=== PATIENT | female | born 1935 | race Caucasian/White ===

== ENCOUNTER 2019-10-11 11:01 | Outpatient (CLI) | payer MEDICARE, SELFPAY ==
[2019-10-11 13:50] LABS: Anion Gap 17.5 (5-19); Blood Urea Nitrogen 53 mg/dL (8-23); Calcium 10.2 mg/Dl (8.8-10.2); Carbon Dioxide 22 mmol/L (22-29); Chloride 104 mmol/L (98-107); Glucose 100 mg/dL (74-106); Potassium 4.5 mmol/L (3.5-5.1); Sodium 139 mmol/L (136-145)
== END 2019-10-11 11:02 | disposition home or self-care (01) ==
LOC: LAB 11:08
PROVIDERS: Family Provider Internal Medicine; PCP Internal Medicine; Visit Provider Internal Medicine
DX: N18.4 Chronic kidney disease, stage 4 (severe) (principal)
CPT/HCPCS: 80048

== ENCOUNTER 2019-11-26 22:24 | Observation (INO) | payer MEDICARE, SELFPAY ==
[2019-11-26 22:30] VITALS: BP 164/85; PULSE 64; RESP 18; TEMP 36.5; O2SAT 97; BMI 31.9
--- NOTE | 2019-11-26 22:47 | ED_ITS ---
Entered by Opal Christiansen, acting as scribe for Haydee Hernandez Mariama Nov 26, 2019 22:24 HPI - Chest Pain General: Chief Complaint: Chest Pain Stated Complaint: cp Time Seen by Provider: 11/26/19 22:46 Source: patient Mode of arrival: ambulatory History of Present Illness: HPI narrative: 83 y/o female presents to the ED with complaint of chest pain. Pt states the pain has been intermittent since 1500 today. She tried some sublingual NTG throughout the day which seemed to relieve the discomfort temporarily. Her pain has been constant for the past hour or so and is achy in nature. She has hx of previous MS and stent placement about 3 years ago. She reports having worn a holter monitor for a span of three months, since her last MS. MD complaint: chest pain Pertinent past history: prior MS Onset (ago): hour(s) Timing of current episode: constant Prior episodes: Yes Pain location: substernal Pain radiation: back Severity: similar to previous episodes Quality: aching Relieving factors: nitroglycerin Associated symptoms: Deny abdominal pain, diaphoresis, dyspnea, fever(s), nausea or vomiting Treatment prior to arrival: nitroglycerin Review of Systems General: Reports: other (negative unless marked) Const: Denies: fever, chills, body aches, fatigue, malaise or diaphoresis Eyes: Denies: change in vision or blurry vision ENMT: Denies: throat pain, painful swallowing, hoarseness, ear pain, ear discharge, Change in hearing or nasal discharge Resp: Denies: shortness of breath, productive cough, non-productive cough, wheezing, coughing up blood or chest congestion GI: Denies: abdominal pain, nausea, vomiting, vomiting blood, coffee grounds in vomit, diarrhea, constipation, cramping, blood in stool or black tarry stool : Denies: flank pain, painful urination, urinary frequency, urinary urgency, decreased urine ouput, urinary incontinence or blood in urine Musc: Denies: neck pain, extremity pain, extremity swelling, joint pain, joint swelling, joint warmth or joint stiffness Skin/Breast: Denies: rash, skin tenderness or yellow skin Neuro: Denies: headache, numbness in extremities, weakness in extremities, changes in sensation, lack of coordination, difficulty walking, dizziness, vertigo or confusion Endo: Denies: excessive thirst, tired all the time, cold intolerance, excessive sweating, flushing or hot flashes Abhishek/Lymph: Denies: easy bruising, easy bleeding, petechiae or enlarged lymph nodes All/Imm: Denies: hives, throat swelling, tongue swelling, facial swelling or acute wheezing PFSH ED PFSH: Medical History (Updated 11/27/19 @ 00:14 by Haydee Hernandez) Cataract Surgical History (Updated 11/07/19 @ 15:25 by Franco Aguilar MD) H/O heart artery stent History of hysterectomy S/P cholecystectomy Family History (Updated 11/07/19 @ 14:51 by JOSE Holland) Brother Cancer Other Diabetes Heart disease Social History (Updated 11/07/19 @ 14:52 by JOSE Holland) Smoking and tobacco status: never smoked Alcohol intake: never History of recent travel: No Physical Exam Const: COMMON NORMALS: no apparent distress, oriented x3, no limitations, healthy appearing and well nourished EXAM LIMITATIONS: no altered mental status GENERAL APPEARANCE: cooperative, well kempt and well developed ORIENTATION/CONSCIOUSNESS: Yes awake HENMT: COMMON NORMALS: normocephalic, head/scalp atraumatic, hearing grossly normal bilaterally, external ears normal, EAC's normal, external nose normal and moist oral mucous membranes HEAD & SCALP: normal to inspection, normocephalic and atraumatic FACE & SINUS: normal facial exam and face symmetric NOSE: external nose normal and nares normal EXTERNAL EAR: Yes external ears normal EXTERNAL AUDITORY CANAL: EAC's normal MOUTH: oral and palatal mucosa normal and tongue normal Eye: COMMON NORMALS: PERRL, EOMs intact bilaterally, conjunctivae normal and no scleral icterus GENERAL EYE: normal appearance of both eyes and normal light reflex CONJUNCTIVA: Yes conjunctivae normal SCLERA: sclerae normal CORNEA: Yes corneas normal PUPIL: Yes PERRL DIRECT OPHTHALMOSCOPY: Yes normal light reflex Neck/C-Spine: COMMON NORMALS: full ROM, no lymphadenopathy, supple and no meningeal signs GENERAL: Yes normal visual inspection and Yes trachea midline CERVICAL SPINE: Yes cervical ROM normal Resp: COMMON NORMALS: normal respiratory effort, no retractions, no use of accessory muscles and clear to auscultation bilaterally EFFORT & INSPECTION: Yes able to speak in complete sentences AUSCULTATION: clear to auscultation bilaterally Cardio: COMMON NORMALS: no rub JUGULAR VENOUS DISTENTION: no JVD GI: COMMON NORMALS: soft to palpation, non-tender, no hepatosplenomegaly and no masses INSPECTION: Yes normal to inspection PALPATION: Yes soft and Yes no hepatosplenomegaly : COMMON NORMALS: Yes no CVA tenderness BLADDER/KIDNEY EXAM: Yes no CVA tenderness Back/Pelvis: COMMON NORMALS: no CVA tenderness, thoracic and lumbar spine normal to inspection, no thoracic nor lumbar tenderness and thoraco-lumbar ROM normal Extremity: COMMON NORMALS: normal to inspection, full ROM, normal capillary refill, no joint enlargement, no clubbing, cyanosis or edema and no calf tenderness Neuro: COMMON NORMALS: oriented x3, CN's II-XII intact bilaterally, moves all extremities, no focal motor deficits and no sensory deficits noted MENINGEAL SIGNS: Yes no meningeal signs Psych: COMMON NORMALS: mental status grossly normal, thought process normal, cooperative, affect normal, speech normal and activity/motor behavior normal APPEARANCE: Yes well kempt SPEECH: Yes normal speech THOUGHT PROCESS: normal thought process Skin: COMMON NORMALS: no rashes or lesions noted, skin turgor normal, no jaundice, no petechiae and no mottling GENERAL SKIN EXAM: no rashes or lesions noted and turgor normal Course Vital Signs: Vital signs: Vital Signs Temperature 97.7 F 11/26/19 22:30 Pulse Rate 55 L 11/27/19 03:00 Respiratory Rate 18 11/27/19 03:00 Blood Pressure 154/68 11/27/19 03:00 Pulse Oximetry 97 11/27/19 03:00 MDM - Chest Pain MDM Narrative: Medical decision making narrative: The patient appears to have acute on chronic renal insufficiency. There is no evidence clinically of congestive heart failure. Believe she needs to be admitted for IV hydration and cardiac rule out. Per review of her previous cath report she has multiple lesions that are present that have not been addressed. The case is reviewed in full with Dr. Escamilla she is agreeable to admission. Lab Data: Attestation: I reviewed the patient's lab results. Labs: Lab Results 11/26/19 11/26/19 11/26/19 Range/Units 23:16 23:16 23:16 WBC 12.4 H (4.0-10.0) 10^3/ uL RBC 4.37 (4.1-5.3) 10^6/u L Hgb 12.2 (11.5-15.3) g/dL Hct 39.9 (37.0-47.0) % MCV 91.3 (81-99) fL MCH 27.9 L (28.0-34.0) pg MCHC 30.6 (30.0-36.0) g/dL RDW 14.5 (12.1-15.1) % Plt Count 152 (130-400) 10^3/c mm MPV 11.2 H (7.4-10.4) fL Neut % (Auto) 81.9 % Lymph % (Auto) 11.5 % [place] % (Auto) 4.8 % Eos % (Auto) 0.1 % Baso % (Auto) 0.2 % Neut # (Auto) 10.2 H (1.8-7.7) 10^3/u L Lymph # (Auto) 1.4 (0.8-4.8) 10^3/u L [place] # (Auto) 0.6 (0.2-0.9) 10^3/u L Eos # (Auto) 0.0 (0.0-0.8) 10^3/u L Baso # (Auto) 0.0 (0.0-0.1) 10^3/u L Nucleated RBC % (a uto) 0 % Nucleated RBCs # 0.0 /100WBC PT 17.90 H (10.5-13.3) SECO NDS INR 1.47 H (0.8-1.2) Sodium 133 L (136-145) mmol/L Potassium 5.8 H (3.5-5.1) mmol/L Chloride 99 (98-107) mmol/L Carbon Dioxide 20 L (22-29) mmol/L Anion Gap 19.8 H (5-19) BUN 86 H* D (8-23) mg/dL Creatinine 2.6 H (0.5-0.9) mg/dL Glucose 119 H (65-115) mg/dL Calcium 10.0 (8.5-10.5) mg/dL Magnesium 2.6 H (1.7-2.3) mg/dL Total Bilirubin 0.3 (0.15-1.2) mg/dL AST 25 (0-32) U/L ALT 44 H (0-33) U/L Alkaline Phosphata se 35 (35-105) IU/L Troponin T Baselin e (0-10) ng/mL NT-Pro-B Natriuret Pep 1261 H (0-450) pg/mL Total Protein 7.2 (6.6-8.7) g/dL Albumin 4.0 (3.5-5.2) g/dL Globulin 3.2 (1.3-4.6) g/dL Lipase 67 H (13-60) U/L 11/26/19 Range/Units 23:16 WBC (4.0-10.0) 10^3/ uL RBC (4.1-5.3) 10^6/u L Hgb (11.5-15.3) g/dL Hct (37.0-47.0) % MCV (81-99) fL MCH (28.0-34.0) pg MCHC (30.0-36.0) g/dL RDW (12.1-15.1) % Plt Count (130-400) 10^3/c mm MPV (7.4-10.4) fL Neut % (Auto) % Lymph % (Auto) % [place] % (Auto) % Eos % (Auto) % Baso % (Auto) % Neut # (Auto) (1.8-7.7) 10^3/u L Lymph # (Auto) (0.8-4.8) 10^3/u L [place] # (Auto) (0.2-0.9) 10^3/u L Eos # (Auto) (0.0-0.8) 10^3/u L Baso # (Auto) (0.0-0.1) 10^3/u L Nucleated RBC % (a uto) % Nucleated RBCs # /100WBC PT (10.5-13.3) SECO NDS INR (0.8-1.2) Sodium (136-145) mmol/L Potassium (3.5-5.1) mmol/L Chloride (98-107) mmol/L Carbon Dioxide (22-29) mmol/L Anion Gap (5-19) BUN (8-23) mg/dL Creatinine (0.5-0.9) mg/dL Glucose (65-115) mg/dL Calcium (8.5-10.5) mg/dL Magnesium (1.7-2.3) mg/dL Total Bilirubin (0.15-1.2) mg/dL AST (0-32) U/L ALT (0-33) U/L Alkaline Phosphata se (35-105) IU/L Troponin T Baselin e 25 H (0-10) ng/mL NT-Pro-B Natriuret Pep (0-450) pg/mL Total Protein (6.6-8.7) g/dL Albumin (3.5-5.2) g/dL Globulin (1.3-4.6) g/dL Lipase (13-60) U/L Imaging Data^: CXR: My impression: Rotated. No acute cardiopulmonary findings. Similar to previous. EKG Data^: EKG 1: Attestation: I personally reviewed and interpreted this EKG as follows: EKG interpretation date: 11/27/19 EKG interpretation time: 22:42 Interpretation: Normal sinus rhythm at 60 beats a minute, right bundle branch block, LVH, nonspecific ST and T wave changes, similar to previous. Discharge Plan Discharge Patient Disposition: Admitted As Inpatient Admit Provider: Janay Escamilla Clinical Impression: Chest pain Qualifiers: Chest pain type: unspecified Qualified Code(s): R07.9 - Chest pain, unspecified Condition: Stable Discharge Orders: Discharge Order (Routine); Ordered 11/27/19 Ordered By: Haydee Hernandez Referrals: Franco Aguilar MD [Primary Care Provider] - Mikey Barksdale MD [Physician] - 1-3 days Discharge Diet: Advance as tolerated Discharge Activity: Increase activity as tolerated Patient Instructions: Chest Pain (ED) Additional Instructions: You're leaving AGAINST MEDICAL ADVICE and are at risk for or severe perm anent disability by doing so. You are more than welcome to return at any time for recheck and for further evaluation and care suture change you change your mind. Your chest pain could be a result of a heart problem. By leaving without complete advice you at risk of or severe permanent disability. If you have any pain again please return to the ER of your choice immediately for recheck..Bless you and your and the ER is always available here if you need anything. Forms: Against Medical Advice Discharge Date/Time: 11/27/19 01:36 Coding Level of Care Code ED Denitrator for Chg Fwd Exam Comprehensive The documentation recorded by the sathishibKulidp du Ashley, accurately reflects the service I personally performed and the decisions made by Mary hernandez Eli N Nov 26, 2019 22:24
[2019-11-26] MEDS: nitroglycerin 0.4 mg sublingual Tablet SUBLINGUAL (22:55)
--- NOTE | 2019-11-26 23:03 | XR_ITS ---
WS: [id number] XR chest 1V portable [id number] REASON FOR EXAM: cough FINDINGS: The right lung base shows a consolidated area most likely pneumonia although rarely Martinez s hump from pulmonary embolus can give this area. The hilum and heart were normal. Comparisons were made to March 20, 2019. XR/XR chest 1V portable [id number] IMPRESSION: Probable pneumonia atelectasis right lung base. See description above
[2019-11-26] MEDS: ondansetron 2 mg/ML SDV 2 mL 4 MG IVP (23:25)
[2019-11-26] MEDS: nitroglycerin 1 gm/inch oint Pkt 1 INCH TOPICAL (23:25)
[2019-11-26 23:34] LABS: Basophils % 0.2 %; Eosinophils % 0.1 %; Hematocrit 39.9 % (37.0-47.0); Hemoglobin 12.2 g/dL (11.5-15.3); Lymphocytes # 1.4 10^3/uL (0.8-4.8); Lymphocytes % 11.5 %; Mean Corpuscular HGB Conc 30.6 g/dL (30.0-36.0); Mean Corpuscular Hemoglobin 27.9 pg (28.0-34.0); Mean Corpuscular Volume 91.3 fL (81-99); Mean Platelet Volume 11.2 fL (7.4-10.4); Monocytes # 0.6 10^3/uL (0.2-0.9); Monocytes % 4.8 %; Neutrophils # 10.2 10^3/uL (1.8-7.7); Neutrophils % 81.9 %; Nucleated Red Blood Cells % 0 %; Platelet Count 152 10^3/cmm (130-400); Red Blood Count 4.37 10^6/uL (4.1-5.3); Red Cell Distribution Width 14.5 % (12.1-15.1); White Blood Count 12.4 10^3/uL (4.0-10.0)
[2019-11-26 23:56] LABS: Troponin(5th) Baseline 25 ng/mL (0-10)
[2019-11-27 00:05] LABS: Alanine Aminotransferase 44 U/L (0-33); Alkaline Phosphatase 35 IU/L (35-105); Anion Gap 19.8 (5-19); Aspartate Amino Transferase 25 U/L (0-32); Carbon Dioxide 20 mmol/L (22-29); Chloride 99 mmol/L (98-107); Globulin 3.2 g/dL (1.3-4.6); Glucose 119 mg/dL (65-115); Lipase 67 U/L (13-60); Magnesium 2.6 mg/dL (1.7-2.3); NT Pro B Type Natriuretic Pept 1261 pg/mL (0-450); Potassium 5.8 mmol/L (3.5-5.1); Sodium 133 mmol/L (136-145); Total Bilirubin 0.3 mg/dL (0.15-1.2); Total Protein 7.2 g/dL (6.6-8.7)
[2019-11-27 00:06] LABS: INR 1.47 (0.8-1.2)
[2019-11-27 00:14] LABS: Blood Urea Nitrogen 86 mg/dL (8-23)
[2019-11-27 01:35] VITALS: BP 123/68; PULSE 56; RESP 14; O2SAT 96
[2019-11-27 02:08] LABS: Troponin 5 2HR 20.28 ng/mL (0-10)
[2019-11-27] MEDS: sodium chloride 0.9% 1,000 ML 100 ML IV ×2 (02:37→09:06)
--- NOTE | 2019-11-27 02:40 | PC.NURSE ---
Admitted to room 105 with complaints of chest pain and renal failure from ED via stretcher. Denies complaints at this time. Haven't had any pain since they put this paste on me. Assessment completed and documented. Oriented to room. I was really wanting to go with my to [place] but they wouldn't let me.....I'm hoping I can get released tomorrow so I can go up there. Patient given decaf coffee and a sandwich per patient request. I'm just hungry....I haven't eaten anything today. Complaining of being cold. Extra blanket given. Up to bathroom with assist of cane and SBA of staff x1. Back to bed. Complaining of IV being in her AC. I've never had them there before. When asked if she would like it moved patient states, no...I think I'll wait and hopefully I can go home tomorrow. Patient and spouse have their grandson living with them that they take care of due to autism. My chest pain has been off and on for a while.....I've taken a total of 4 nitro's today and they gave me one in the ER....pain didn't completely go away until they put that paste on me. No other needs or complaints voiced. Will monitor.
[2019-11-27 02:49] LABS: Troponin 5 2HR Delta -4.72 ABS# (0-10)
[2019-11-27 03:00] VITALS: BP 154/68; PULSE 55; RESP 18; O2SAT 97
--- NOTE | 2019-11-27 04:40 | PM.HP ---
Providers/Chief Complaint Admitting Physician: Janay Escamilla MD Primary Care Provider: Franco Aguilar MD Chief Complaint: cp History of Present Illness Shazia Waters is a 83 year old female history of coronary artery disease, status post LAD stenting in November 2016, with RA, PMR, paroxysmal A. fib, HTN. She was in the ER with her today who was brought in for medical issues when she started experiencing chest pain. This had been ongoing all day, but became more persistent towards the late evening. She had been taking prn S/L nitro during the day with improvement. When pain became persistent she was evaluated by ED staff. Her EKG looks unchanged from 03/2019. troponin was 25, trending down to 20.28 with negative delta. She denies any c/o shortness of breath today. Other labs include cr 2.5, per review this appears to be worsening more recently since early Oct when it was at 2.2. BUN is also elevated at 86. Patient states she has not had adequate po intake today and may be dehydrated. K is at 5.8. Last time she had a similar episode was in 03/2019 at which time she had chest pain, underwent a stress test which showed Medium-size area of old myocardial infarction versus scarring noted in the mid to distal anterior anteroseptal and apical wall surrounded by very small area of olegario-infarct ischemia. EF was ~39%. From angiogram in 2016, she is known to have 95% obstruction of distal branch of obtuse marginal, too small for intervention. At the time medical management was opted for in the face of her CKD. Her imdur was increased to 60mg and she has been on this dose since then. Review of Systems General: Reports: 10 or more systems reviewed and unremarkable except in HPI and below Const: Denies: fever, chills or body aches Eyes: Denies: change in vision, blurry vision or photophobia ENMT: Reports: hoarseness; Denies: throat pain, enlarged tonsils, painful swallowing or nasal congestion Card: Reports: chest pain; Denies: palpitations, irregular heart rhythm, edema, swelling of feet/ankles, lightheadedness, pre-syncope, shortness of breath on exertion or shortness of breath when lying down Resp: Denies: shortness of breath, productive cough, non-productive cough, wheezing, stridor, pain on inspiration, change in phlegm color, coughing up blood or chest congestion GI: Denies: abdominal pain, nausea, vomiting, vomiting blood, coffee grounds in vomit, difficulty swallowing, heartburn/indigestion, diarrhea, constipation, cramping, change in stool character, blood in stool or black tarry stool : Denies: flank pain, difficulty urinating, painful urination, urinary frequency, urinary urgency, urinary hesitancy or blood in urine Musc: Denies: neck pain, back pain, extremity pain, joint swelling, joint warmth or deformity Neuro: Denies: headache, numbness in extremities, weakness in extremities, changes in sensation, difficulty walking, frequent falls, dizziness, vertigo, behavioral changes, slurred speech or seizure-like activity Psych: Denies: anxiety, depression, suicidal ideation or homicidal ideation Endo: Denies: excessive urination, excessive thirst, tired all the time, cold intolerance or hot flashes Abhishek/Lymph: Denies: easy bruising or easy bleeding Medications/Allergies Home Medications Medication Instructions Recorded Confirmed Last Taken Type B Complex PO DAILY 11/26/19 11/26/19 History Fish Oil PO DAILY 11/26/19 11/26/19 History One-A-Day Women's 50 Plus PO DAILY 11/26/19 11/26/19 History Vitamin D3 PO DAILY 11/26/19 11/26/19 History amiodarone 200 mg PO DAILY 11/26/19 11/26/19 11/26/19 History apixaban [Eliquis] 5 mg PO BID 11/26/19 11/26/19 11/26/19 History atenolol 25 mg PO DAILY 11/26/19 11/26/19 Unknown History famotidine 40 mg PO BID 11/26/19 11/26/19 11/26/19 History furosemide 40 mg PO DAILY 11/26/19 11/26/19 11/26/19 History isosorbide mononitrate 60 mg PO DAILY 11/26/19 11/26/19 11/26/19 History lisinopril 2.5 mg PO DAILY 11/26/19 11/26/19 11/26/19 History loratadine 10 mg PO DAILY 11/26/19 11/26/19 11/26/19 History rosuvastatin [Crestor] 10 mg PO DAILY 11/26/19 11/26/19 11/26/19 History spironolactone 25 mg PO DAILY 11/26/19 11/26/19 11/26/19 History polyethylene glycol 3350 [Miralax] 17 g PO DAILY 11/27/19 11/27/19 Unknown History Allergies Allergy/AdvReac Type Severity Reaction Status Date / Time celecoxib [From Celebrex] Allergy UNKNOWN Verified 11/27/19 02:47 codeine AdvReac ADR-Confusi Verified 11/27/19 02:47 on morphine AdvReac ADR-Halluci Verified 11/27/19 02:47 nating PFSH Acute PFSH: Medical History (Updated 11/27/19 @ 06:55 by Janay Escamilla MD) Acute kidney injury superimposed on CKD Atrial fibrillation CAD (coronary artery disease) Cataract Hyperkalemia PMR (polymyalgia rheumatica) Surgical History H/O heart artery stent History of hysterectomy S/P cholecystectomy Family History Brother Cancer Other Diabetes Heart disease Social History Smoking and tobacco status: never smoked Alcohol intake: never History of recent travel: No Vitals/I&O/Wt Last Vital Signs Temp 97.7 F 11/26/19 22:30 Pulse 55 L 11/27/19 03:00 Resp 18 11/27/19 03:00 BP 154/68 11/27/19 03:00 Pulse Ox 97 11/27/19 03:00 11/26/19 11/26/19 11/27/19 14:59 22:59 06:59 Intake Total 240 / 240 Balance 240 / 240 Weight last 48 hrs Weight 92.533 kg Weight 89.811 kg Physical Exam Narrative: EXAM NARRATIVE: GEN: Awake, alert and oriented, no acute distress, lying in bed CVS: S1S2 N RS: CTA B/L Abd: Soft, nt/nd , bs+ COLLIERY CLERK: no focal neuro deficits Data : 11/27/19 06:19 11/26/19 23:16 A&P Assessment and plan (1) Atrial fibrillation: Status: Acute Code(s): I48.91 - Unspecified atrial fibrillation (2) Chest pain: Status: Acute Qualifiers: Chest pain type: unspecified Qualified Code(s): R07.9 - Chest pain, unspecified Code(s): R07.9 - Chest pain, unspecified (3) CAD (coronary artery disease): Status: Acute Code(s): I25.10 - Atherosclerotic heart disease of [place] coronary artery without angina pectoris (4) Essential hypertension: Status: Acute Code(s): I10 - Essential (primary) hypertension (5) Hyperkalemia: Status: Acute Code(s): E87.5 - Hyperkalemia (6) Acute kidney injury superimposed on CKD: Status: Acute Code(s): N17.9 - Acute kidney failure, unspecified; N18.9 - Chronic kidney disease, unspecified Additional A&P Information Placed to CSU for observation Patient has had recurrent episodes of chest pain today responsive to nitrates. Serial troponins without appreciable delta and lack of new EKG changes, together with resolved pain make ME less likely. Angina cannot be ruled out at this time given significant past history, including h/o non stentable lesions. Ideally would recommend a stress test for further evaluation, however I am uncertain if this test will be able to be performed today as she has had a meal at 3 am. She would prefer not to wait in the hospital if this test cannot be performed early this morning as her is admitted in critical condition in [place] and she would like to be by his side. Therefore for now, will attempt to maximize medical therapy by increasing Imdur to 90 mg daily with close outpatient follow up with cardiology to determine next steps. Hyperkalemia at 5.8, holding lisinopril and spirinolactone. Rpt labs ordered. Currently on Iv hydration with NS. No Ekg changes. If trending up, will add directed treatment with insulin/dextrose and kayexalate. ANANT on CKD: may be 2/2 dehydration contributed by LUIZ/diuretic use. Both on hold for now A fib: currently rate controlled on atenolol. Continue eliquis DVT ppx: on eliquis full code Attestations Medical Necessity Statement*: Anticipate <2 MN for angina, hyperkalemia, ANANT Coding Level of Care Code Acute Roving Or Yarn Color Checker for Chg Fwd Diagnoses Atrial fibrillation I48.91 Chest pain R07.9 Chest pain type: unspecified CAD (coronary artery disease) I25.10 Essential hypertension I10 Hyperkalemia E87.5 Acute kidney injury superimposed on CKD N17.9; N18.9
--- NOTE | 2019-11-27 05:04 | ECG_ITS ---
Measurements Intervals [place] Rate: 51 P: 1 MS: 185 QRS: -61 QRSD: 140 T: 33 QT: 455 QTc: 422 SINUS BRADYCARDIA RIGHT BUNDLE BRANCH BLOCK LEFT ANTERIOR FASCICULAR BLOCK LEFT VENTRICULAR HYPERTROPHY AND ST-T CHANGE POSSIBLE SEPTAL MYOCARDIAL INFARCTION , OF INDETERMINATE AGE Compared to ECG 03/21/2019 00:29:10 ST (T wave) deviation now present T-wave abnormality no longer present Possible ischemia no longer present Myocardial infarct finding still present Electronically Signed On 11-27-2019 13:21:55 [employer] by Danielle Chaudhry M.D. [email or web address]
[2019-11-27 06:54] LABS: Basophils % 0.1 %; Eosinophils # 0.1 10^3/uL (0.0-0.8); Eosinophils % 0.5 %; Hematocrit 37.2 % (37.0-47.0); Hemoglobin 11.2 g/dL (11.5-15.3); Lymphocytes # 1.9 10^3/uL (0.8-4.8); Lymphocytes % 17.8 %; Mean Corpuscular HGB Conc 30.1 g/dL (30.0-36.0); Mean Corpuscular Hemoglobin 27.8 pg (28.0-34.0); Mean Corpuscular Volume 92.3 fL (81-99); Monocytes # 0.7 10^3/uL (0.2-0.9); Monocytes % 6.8 %; Neutrophils # 7.8 10^3/uL (1.8-7.7); Neutrophils % 73.1 %; Nucleated Red Blood Cells % 0 %; Platelet Count 124 10^3/cmm (130-400); Red Blood Count 4.03 10^6/uL (4.1-5.3); Red Cell Distribution Width 14.6 % (12.1-15.1); White Blood Count 10.7 10^3/uL (4.0-10.0)
[2019-11-27 07:10] LABS: Anion Gap 15.9 (5-19); Blood Urea Nitrogen 81 mg/dL (8-23); Calcium 9.3 mg/dL (8.5-10.5); Carbon Dioxide 20 mmol/L (22-29); Chloride 105 mmol/L (98-107); Glucose 123 mg/dL (65-115); Osmolality Calculated 283 mOsm/kg (285-295); Potassium 4.9 mmol/L (3.5-5.1); Sodium 136 mmol/L (136-145)
[2019-11-27 07:12] LABS: Troponin 5 6HR 20.42 ng/mL (0-10)
[2019-11-27 07:19] LABS: Troponin 5 6HR Delta -4.58 ng/L (0-12)
[2019-11-27 07:26] VITALS: BP 119/64; PULSE 56; RESP 18; TEMP 36.7; O2SAT 96
[2019-11-27 08:21] LABS: Alanine Aminotransferase 39 U/L (0-33); Albumin Level 3.2 g/dL (3.5-5.2); Alkaline Phosphatase 33 IU/L (35-105); Anion Gap 17.9 (5-19); Aspartate Amino Transferase 21 U/L (0-32); Blood Urea Nitrogen 80 mg/dL (8-23); Calcium 9.2 mg/dL (8.5-10.5); Carbon Dioxide 19 mmol/L (22-29); Chloride 105 mmol/L (98-107); Globulin 3.1 g/dL (1.3-4.6); Glucose 122 mg/dL (65-115); Potassium 4.9 mmol/L (3.5-5.1); Sodium 137 mmol/L (136-145); Total Bilirubin 0.3 mg/dL (0.15-1.2); Total Protein 6.3 g/dL (6.6-8.7)
--- NOTE | 2019-11-27 08:27 | PM.DCS ---
Discharge Providers Date of Admission: 11/27/19 00:25 Date of Discharge: November 27, 2019 Attending Provider at Admission: Janay Escamilla MD Attending Provider at Discharge: Roxanne Castillo MD Primary Care Provider: Franco Aguilar MD Diagnoses at Discharge Discharge Diagnosis (1) Chest pain: Status: Acute Problem details: Patient has known coronary artery disease, had stress testing done in March 2019 which showed medium-sized area of old SC versus scarring in the mid to distal anterior, anteroseptal and apical wall with a small area of olegario-infarct ischemia noted -Had a coronary angiogram done in January 2017 showing patent mid LAD stent, 30 to 40% stenosis of the second OM, mild diffuse disease of the RCA, small distal branch of LCx with 95% stenosis which is too small for intervention -Troponins noted with no significant delta; no acute changes noted on EKG -Has been hemodynamically stable -Patient follows up with Dr. Barksdale as an outpatient -Will request outpatient stress testing in about 1 week -Continue medications with noted increase in Imdur from 60 mg once daily to 90 mg once daily as patient had significant relief with nitroglycerin Qualifiers: Chest pain type: unspecified Qualified Code(s): R07.9 - Chest pain, unspecified (2) Atrial fibrillation: Status: Chronic Problem details: -Patient has known history of paroxysmal atrial fibrillation -Heart rate controlled, continue beta-chay, anticoagulation with Eliquis Qualifiers: Atrial fibrillation type: paroxysmal Qualified Code(s): I48.0 - Paroxysmal atrial fibrillation (3) CAD (coronary artery disease): Status: Chronic Problem details: -Has known history of CAD with prior stenting of the LAD in 11/2016 -Continue meds with increase in Imdur as noted above -Continue to follow-up with Dr. Barksdale Qualifiers: Associated angina: angina presence unspecified Coronary Disease-Associated Artery/Lesion type: [place] artery [place] vs. transplanted heart: [place] heart Qualified Code(s): I25.10 - Atherosclerotic heart disease of [place] coronary artery without angina pectoris (4) Essential hypertension: Status: Chronic Problem details: -Hemodynamically stable, continue antihypertensives (5) Hyperkalemia: Status: Resolved Problem details: -Hyperkalemia resolved, potassium this morning is 4.9 (6) Acute kidney injury superimposed on CKD: Status: Acute Problem details: -Has known history of CKD stage III; baseline creatinine is between 1.5-2 -Creatinine improved overnight with IV fluid hydration from 2.6-2.3 -LUIZ inhibitor and diuretics held overnight Other Information Additional DC diagnoses/information: -Morbid obesity: BMI-33 kg/m2 -Advanced age -hx of rheumatoid arthritis and polymyalgia rheumatica; on chronic prednisone Reason for Visit Reason for Visit: Reason For Visit: cp Hospital Course Hospital Course: Patient was admitted to the cardiac stepdown unit and placed on telemetry monitoring. She had rule out ACS work-up with serial troponins and EKGs done. No noted significant delta change on her troponins, no acute changes noted on her EKGs. She has been hemodynamically stable. Last oral intake was around 3 AM so we will not be able to do stress testing today. Patient's chest pain resolved with Nitropaste. Dr. Escamilla spoke with Dr. Chaudhry who recommended increased dose of Imdur, from 60 mg to 90 mg once daily. Patient had accompanied her to the hospital yesterday evening when she developed chest pain, has been transferred to [place] and patient is very eager to go and see him. She is currently chest pain-free, hemodynamically stable, afebrile. She was noted to have acutely impaired kidney function with an initial creatinine of 2.6. She was started on some IV fluid hydration overnight and her diuretics and LUIZ inhibitor were held. There is a noted improvement in her renal function today. She has known coronary artery disease with last coronary angiogram showing evidence of small vessel disease in the distal branch of second OM, too small for intervention as well as 30 to 40% stenosis of the mid section of the second OM. Her LAD stent was found to be patent. As she is currently chest pain-free we will order an outpatient chemical stress test for further evaluation with close follow-up with both her primary care provider and Dr. Barksdale whom she sees as an outpatient. She is advised to seek medical attention immediately should her symptoms worsen. Given patient's age greater than 80 will decrease her dose of Eliquis to 2.5 mg twice daily for continued anticoagulation secondary to paroxysmal atrial fibrillation. Discharge Summary: -Patient to follow-up with her primary care physician within 1 week -Patient to have outpatient chemical stress testing once scheduled -Patient to continue to follow-up with Dr. Barksdale Physical Exam Const: COMMON NORMALS: no apparent distress and oriented x3 GENERAL APPEARANCE: cooperative and comfortable ORIENTATION/CONSCIOUSNESS: Yes awake HENMT: COMMON NORMALS: normocephalic, head/scalp atraumatic, hearing grossly normal bilaterally and moist oral mucous membranes HEAD & SCALP: normocephalic and atraumatic Eye: COMMON NORMALS: PERRL, EOMs intact bilaterally and conjunctivae normal CONJUNCTIVA: Yes conjunctivae normal PUPIL: Yes PERRL Neck/C-Spine: COMMON NORMALS: full ROM GENERAL: Yes normal visual inspection and Yes trachea midline Resp: COMMON NORMALS: normal respiratory effort, no retractions, no use of accessory muscles and clear to auscultation bilaterally EFFORT & INSPECTION: Yes able to speak in complete sentences, Yes symmetric chest movement and No tachypneic AUSCULTATION: clear to auscultation bilaterally Cardio: COMMON NORMALS: regular rate, regular rhythm, S1 normal heart sound, S2 normal heart sound and no murmurs RATE: regular rate RHYTHM: regular rhythm HEART SOUNDS: S1 normal and S2 normal GI: COMMON NORMALS: normal to inspection, nondistended, normoactive bowel sounds, soft to palpation and non-tender PALPATION: Yes soft Extremity: COMMON NORMALS: normal to inspection, full ROM and no clubbing, cyanosis or edema; negative for no pedal edema Neuro: COMMON NORMALS: oriented x3, moves all extremities, no focal motor deficits and no sensory deficits noted Psych: COMMON NORMALS: mental status grossly normal, thought process normal, cooperative, affect normal and speech normal SPEECH: Yes normal speech THOUGHT PROCESS: normal thought process Skin: COMMON NORMALS: no rashes or lesions noted, no jaundice, no petechiae and no mottling GENERAL SKIN EXAM: no rashes or lesions noted Discharge Data Data Completed and Pending: Pending at discharge Category Date Time Status XR chest 1V leana ble [id number] Stat Exams 11/26/19 23:03 Taken Complete Blood Co unt w/Auto Stat Lab 11/27/19 06:19 Results Labs from last 24 hours 11/27/19 11/27/19 11/27/19 06:19 06:19 06:19 WBC 10.7 H RBC 4.03 L Hgb 11.2 L Hct 37.2 MCV 92.3 MCH 27.8 L MCHC 30.1 RDW 14.6 Plt Count 124 L MPV 11.0 H Neut % (Auto) 73.1 Lymph % (Auto) 17.8 [place] % (Auto) 6.8 Eos % (Auto) 0.5 Baso % (Auto) 0.1 Neut # (Auto) 7.8 H Lymph # (Auto) 1.9 [place] # (Auto) 0.7 Eos # (Auto) 0.1 Baso # (Auto) 0.0 Nucleated RBC % (a uto) 0 Nucleated RBCs # 0.0 PT INR Sodium 137 136 Potassium 4.9 4.9 Chloride 105 105 Carbon Dioxide 19 L 20 L Anion Gap 17.9 15.9 BUN 80 H 81 H Creatinine 2.3 H 2.3 H Glucose 122 H 123 H Calculated Osmolal ity 283 L Calcium 9.2 9.3 Magnesium Total Bilirubin 0.3 AST 21 ALT 39 H Alkaline Phosphata se 33 L Troponin I 6 Hour Troponin I Hi Sens Del Troponin T Baselin e Troponin T 120 Min richa Delta Troponin T NT-Pro-B Natriuret Pep Total Protein 6.3 L Albumin 3.2 L Globulin 3.1 Lipase 11/27/19 11/27/19 11/26/19 06:19 01:18 23:16 WBC RBC Hgb Hct MCV MCH MCHC RDW Plt Count MPV Neut % (Auto) Lymph % (Auto) [place] % (Auto) Eos % (Auto) Baso % (Auto) Neut # (Auto) Lymph # (Auto) [place] # (Auto) Eos # (Auto) Baso # (Auto) Nucleated RBC % (a uto) Nucleated RBCs # PT INR Sodium Potassium Chloride Carbon Dioxide Anion Gap BUN Creatinine Glucose Calculated Osmolal ity Calcium Magnesium Total Bilirubin AST ALT Alkaline Phosphata se Troponin I 6 Hour 20.42 H Troponin I Hi Sens Del -4.58 L Troponin T Baselin e 25 H Troponin T 120 Min richa 20.28 H Delta Troponin T -4.72 L NT-Pro-B Natriuret Pep Total Protein Albumin Globulin Lipase 11/26/19 11/26/19 11/26/19 23:16 23:16 23:16 WBC 12.4 H RBC 4.37 Hgb 12.2 Hct 39.9 MCV 91.3 MCH 27.9 L MCHC 30.6 RDW 14.5 Plt Count 152 MPV 11.2 H Neut % (Auto) 81.9 Lymph % (Auto) 11.5 [place] % (Auto) 4.8 Eos % (Auto) 0.1 Baso % (Auto) 0.2 Neut # (Auto) 10.2 H Lymph # (Auto) 1.4 [place] # (Auto) 0.6 Eos # (Auto) 0.0 Baso # (Auto) 0.0 Nucleated RBC % (a uto) 0 Nucleated RBCs # 0.0 PT 17.90 H INR 1.47 H Sodium 133 L Potassium 5.8 H Chloride 99 Carbon Dioxide 20 L Anion Gap 19.8 H BUN 86 H* D Creatinine 2.6 H Glucose 119 H Calculated Osmolal ity Calcium 10.0 Magnesium 2.6 H Total Bilirubin 0.3 AST 25 ALT 44 H Alkaline Phosphata se 35 Troponin I 6 Hour Troponin I Hi Sens Del Troponin T Baselin e Troponin T 120 Min richa Delta Troponin T NT-Pro-B Natriuret Pep 1261 H Total Protein 7.2 Albumin 4.0 Globulin 3.2 Lipase 67 H Vitals: Last Vital Signs Temp 98.0 F 11/27/19 07:26 Pulse 56 L 11/27/19 07:26 Resp 18 11/27/19 07:26 BP 119/64 11/27/19 07:26 Pulse Ox 96 11/27/19 07:26 Discharge Plan Discharge Patient Disposition: Home, Self-Care Condition: Stable Prescriptions: New isosorbide mononitrate 30 mg Tablet Extended Release 24 Hr 90 mg PO DAILY 30 Days Qty: 90 RF: 0 Eliquis 5 mg tablet 2.5 mg PO BID 30 Days Qty: 30 RF: 0 Continued prednisone 20 mg tablet 20 mg PO QDAY Qty: 90 RF: 3 tizanidine 2 mg capsule 2 mg PO QDAY PRN (Reason: muscle spasticity) Qty: 30 RF: 3 furosemide 40 mg tablet 40 mg PO DAILY RF: 0 amiodarone 200 mg tablet 200 mg PO DAILY RF: 0 famotidine 40 mg tablet 40 mg PO BID RF: 0 spironolactone 25 mg tablet 25 mg PO DAILY RF: 0 lisinopril 5 mg tablet 2.5 mg PO DAILY RF: 0 atenolol 50 mg tablet 25 mg PO DAILY RF: 0 loratadine 10 mg tablet 10 mg PO DAILY RF: 0 Crestor 10 mg tablet 10 mg PO DAILY RF: 0 Fish Oil PO DAILY RF: 0 Vitamin D3 PO DAILY RF: 0 B Complex PO DAILY RF: 0 One-A-Day Women's 50 Plus PO DAILY RF: 0 Miralax 17 gram/dose Powder 17 g PO DAILY RF: 0 Discontinued isosorbide mononitrate 60 mg tablet extended release 24 hr 60 mg PO DAILY RF: 0 Discharge Orders: Discharge Order (Routine); Ordered 11/27/19 Ordered By: Haydee Hernandez Other Ambulatory Orders: Sestamibi Stress Test Request (Routine) Timeframe: 1 Week Facility: [facility] - Location: Cardiac Diagnostic Laboratory Ordered By: Roxanne Castillo Referrals: Franco Aguilar MD [Primary Care Provider] - 4-7 days (Post-hospital follow up for chest pain; requested outpatient chemical stress testing) Mikey Barksdale MD [Physician] - 1-3 days Discharge Diet: Advance as tolerated and Cardiac Discharge Activity: Increase activity as tolerated Patient Instructions: Chest Pain (ED) Activity Restrictions/Additional Instructions: You will be contacted to have an outpatient stress test done for further evaluation of your chest pain and coronary artery disease. Please make sure to keep your scheduled appointment. Please seek medical attention immediately if symptoms worsen Discharge Attestations Time Spent in Discharge Care*: greater than 30 min Specific Discharge Activities: Specific discharge activities: educating patient, documenting/other paperwork and evaluating patient/reviewing data Status at Discharge: Cognitive status at discharge: cognitively intact, Functional status at discharge: independent ambulation Overall status at discharge: patient is back to baseline Quality Metrics Clinical Quality Measures During this hospital stay, did patient experience: None Coding Level of Care Code Acute Firefighter Marine for g Fwd Exam Comprehensive Diagnoses Chest pain R07.9 Chest pain type: unspecified Atrial fibrillation I48.0 Atrial fibrillation type: paroxysmal CAD (coronary artery disease) I25.10 Associated angina: angina presence unspecified Coronary Disease-Associated Artery/Lesion type: [place] artery [place] vs. transplanted heart: [place] heart Essential hypertension I10 Hyperkalemia E87.5 Acute kidney injury superimposed on CKD N17.9; N18.9
[2019-11-27] MEDS: apixaban 5 mg Tablet PO (09:05)
[2019-11-27] MEDS: amiodarone 200 mg Tablet PO (09:05)
[2019-11-27] MEDS: isosorbide mononitrate ER 30 mg Tablet 90 MG PO (09:06)
[2019-11-27] MEDS: atenolol 50 mg Tablet 25 MG PO (09:06)
[2019-11-27] MEDS: predniSONE 20 mg Tablet PO (09:06)
[2019-11-27] MEDS: famotidine 20 mg Tablet 40 MG PO (09:06)
[2019-11-27 11:09] VITALS: BP 121/52; PULSE 62; RESP 18; O2SAT 96
--- NOTE | 2019-11-27 12:15 | PC.CHAP ---
Pastoral Care Encounter/Spiritual Assessment Type of Contact [] Declined employment coach visit [] Patient/Family/Request visit [] Outpatient visit [] Follow-up visit [] Physician referral [] Code/Alert [x] Routine visit [] Staff referral [] Actively dying [] Patient sleeping [] Family support [] [] Out of room [] Palliative care [] [] Receiving care in room [] Pre-surgical visit [] Trauma [] Long length of stay [] ICU visit [] Other: Relational/Emotional Strength [] Patient feels connected with others/family/visitors/staff [] Distress [] Loneliness/isolation [] Abandonment Spirituality of Patient [x] Person of Summer [x] Attends [place] of their Summer [x] Believes in Prayer [] Reads Bible or Restoration materials [] There are Spiritual issues to be addressed Top Collar Maker Interventions [x] Prayer [] Active listening [] Non-anxious presence [] Spiritual/emotional support [] Crisis/trauma care [] Spiritual counseling [] Bereavement support [] Provided bereavement packet [] Provided Bible/devotional materials [] Provided toy/stuffed animal, coloring book to patient or family member [] Provided Communion [] Anointing/[place] [] Salvation [x] Completed spiritual assessment [] Other: Impact on Illness or Injury [] Angry [] Fearful [] Anxious [] Often cries [] Exhaustion [] Unable to work [] Unable to attend temple [] Unable to walk/stand [] Unable to read [] Unable to drive [] Unable to eat/drink [] Unable to sleep [] Unable to be with family [] Patient intubated [] Other: Summary Top Collar Maker has knowledge of patient. Top Collar Maker was with patients spouse in ER last evening (he was transfered to [facility]) patient is ready to go home. Time spent with patient 15min
[2019-11-27 16:00] VITALS: RESP 22
[2019-11-27 16:17] VITALS: BP 121/52; PULSE 62; RESP 18; O2SAT 96
== END 2019-11-27 16:43 | disposition home or self-care (01) ==
LOC: ER 11-27 00:14 → CSU 11-27 01:27
PROVIDERS: Admitting Provider Student in an Organized Health Care Education/Training Program; Emergency Provider Emergency Medicine; Family Provider Internal Medicine; PCP Internal Medicine; Visit Provider Family Medicine
DX: I48.0 Paroxysmal atrial fibrillation (principal); I25.10 Atherosclerotic heart disease of native coronary artery without angina pectoris; E87.5 Hyperkalemia; I12.9 Hypertensive chronic kidney disease with stage 1 through stage 4 chronic kidney disease, or unspecified chronic kidney disease; N18.9 Chronic kidney disease, unspecified; Z95.5 Presence of coronary angioplasty implant and graft; Z83.3 Family history of diabetes mellitus; Z82.49 Family history of ischemic heart disease and other diseases of the circulatory system; E66.01 Morbid (severe) obesity due to excess calories; Z68.33 Body mass index [BMI] 33.0-33.9, adult
CPT/HCPCS: 12345; 36415; 71045; 80048; 80053; 83690; 83735; 83880; 84484; 85025; 85610; 93005; 96360; 96361; 96374; 96375; 99282; 99285; G0378; J2405; J7030; J7512

== ENCOUNTER 2019-12-12 08:33 | Outpatient (CLI) | payer MEDICARE, SELFPAY ==
[2019-12-12 08:37] VITALS: BMI 32.5
--- NOTE | 2019-12-12 08:41 | NMCV_ITS ---
NM filomena perf SPECT r/s* [id number] Shazia Waters Age: 83 Gender: F : 1935 Exam Date: 12/12/2019 08:41 Ordering Phys: Roxanne Castillo MD Technologist: Exam Location: [facility] Indications: Chest pain, CAD STRESS TEST [facility] IMAGE PROTOCOL Rest/Stress 1 Lexiscan Day Radiopharmaceutical Dose (mCi) Administration Site Administered by Rest: Tc-99m 10.6 IV Layla Cruz, GEAR MACHINIST Sestamibi Stress:Tc-99m 32.4 IV Olu Sargent, GEAR MACHINIST Sestamibi Rest: 12-Dec-2019 60 Discovery 630 Stress: 12-Dec-2019 45 Discovery 630 0.4mg Lexiscan. Images obtained in supine and prone position. SPECT RESULTS Technical Quality: Good Raw Data Analysis: Breast attenuation Image Corrections: No attenuation or motion correction applied Summed Stress Score: 10 Summed Rest Score: 12 Summed Difference Score: 0 PERFUSION FINDINGS Medium sized perfusion abnormality of moderate severity of mid to apical inferior, mid to apical inferolateral and apical septal altman on rest with improved tracer uptake in mid inferior altman on stress images. This is suggestive of attenuation artifact. FUNCTIONAL RESULTS (calculated via Gated SPECT) Stress Image LV EF (%): 46 Stress EDV (mL):112 TID: 1.05 Stress ESV (mL):61 FUNCTIONAL FINDINGS: The left ventricle is normal in size. Transient Ischemia Dilatation of 1.1. There is mildly reduced left ventricular systolic function. The left ventricular ejection fraction is reduced with a value of 46%. There is hypokinesis of apical inferior and apical altman. End-diastolic volume of 112 and end-systolic volume of 61 mL. IMPRESSIONS 1. Medium sized fixed perfusion abnormality of moderate severity of mid to apical inferolateral, apical septal, apical inferior and apical altman. 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 2. The left ventricular ejection fraction is mildly reduced with a value of 46%. 3. There is hypokinesis of apical inferior and apical altman. 4. No coronary ischemia based on the study. Danielle Chaudhry MD (Electronically Signed) Final Date: 16 December 2019 08:59 S
--- NOTE | 2019-12-12 09:05 | SUR.PREOP ---
Patient reports no pain or discomfort prior to the start of the procedure.
--- NOTE | 2019-12-12 10:28 | SUR.PREOP ---
Patient reports no pain or discomfort prior to the start of the procedure.
[2019-12-12] MEDS: regadenoson 0.4 Mg/5 ml Syringe IVP (10:32)
[2019-12-12 10:42] VITALS: BP 167/70; PULSE 67
== END 2019-12-12 08:34 | disposition home or self-care (01) ==
PROVIDERS: Family Provider Internal Medicine; PCP Internal Medicine; Visit Provider Family Medicine
DX: I25.10 Atherosclerotic heart disease of native coronary artery without angina pectoris (principal); R07.9 Chest pain, unspecified
CPT/HCPCS: 78452; 93017; A9500; J2785

== ENCOUNTER → 2020-02-07 09:26 | Outpatient (BNVA) | payer MEDICARE, SELFPAY | PROVIDERS: Family Provider Internal Medicine; PCP Internal Medicine; Visit Provider Internal Medicine | DX: E87.5 Hyperkalemia (principal); I10 Essential (primary) hypertension | CPT/HCPCS: 80048 ==

== ENCOUNTER 2020-02-12 15:13 | Outpatient (CLI) | payer MEDICARE, SELFPAY ==
[2020-02-12 15:59] LABS: Anion Gap 14.6 (5-19); Blood Urea Nitrogen 52 mg/dL (8-23); Calcium 9.8 mg/dL (8.5-10.5); Carbon Dioxide 24 mmol/L (22-29); Chloride 105 mmol/L (98-107); Glucose 147 mg/dL (65-115); Osmolality Calculated 287 mOsm/kg (285-295); Potassium 5.6 mmol/L (3.5-5.1); Sodium 138 mmol/L (136-145)
== END 2020-02-12 15:14 | disposition home or self-care (01) ==
LOC: LAB 15:16
PROVIDERS: Family Provider Internal Medicine; PCP Internal Medicine; Visit Provider Internal Medicine
DX: N17.9 Acute kidney failure, unspecified (principal); N18.9 Chronic kidney disease, unspecified
CPT/HCPCS: 36415; 80048

== ENCOUNTER 2020-02-21 08:24 | Outpatient (CLI) | payer MEDICARE, SELFPAY ==
[2020-02-21 09:11] LABS: Anion Gap 16.6 (5-19); Blood Urea Nitrogen 32 mg/dL (8-23); Calcium 9.9 mg/dL (8.5-10.5); Carbon Dioxide 26 mmol/L (22-29); Chloride 102 mmol/L (98-107); Glucose 101 mg/dL (65-115); Osmolality Calculated 287 mOsm/kg (285-295); Potassium 4.6 mmol/L (3.5-5.1); Sodium 140 mmol/L (136-145)
== END 2020-02-21 08:25 | disposition home or self-care (01) ==
LOC: LAB 08:29
PROVIDERS: PCP Internal Medicine; Visit Provider Internal Medicine
DX: N17.9 Acute kidney failure, unspecified (principal); N18.9 Chronic kidney disease, unspecified
CPT/HCPCS: 80048

== ENCOUNTER → 2020-02-27 12:03 | Outpatient (BNVA) | payer MEDICARE, SELFPAY | PROVIDERS: PCP Internal Medicine; Visit Provider Specialist | DX: S43.004A Unspecified dislocation of right shoulder joint, initial encounter (principal); X58.XXXA Exposure to other specified factors, initial encounter | CPT/HCPCS: 73030 ==

== ENCOUNTER 2020-02-27 14:41 | Outpatient (CLI) | payer MEDICARE, SELFPAY | END 2020-02-27 14:42 | disposition home or self-care (01) | LOC: SPT 14:42 | PROVIDERS: PCP Internal Medicine; Visit Provider Specialist | DX: Z46.89 Encounter for fitting and adjustment of other specified devices (principal); M25.511 Pain in right shoulder; S43.004A Unspecified dislocation of right shoulder joint, initial encounter; X58.XXXA Exposure to other specified factors, initial encounter | CPT/HCPCS: 73030; 97760; L3670 ==

== ENCOUNTER → 2020-03-04 11:00 | Outpatient (BNVA) | payer MEDICARE, SELFPAY | PROVIDERS: PCP Internal Medicine; Visit Provider Nurse Practitioner Family | DX: E87.5 Hyperkalemia (principal); N17.9 Acute kidney failure, unspecified; N18.9 Chronic kidney disease, unspecified; I25.10 Atherosclerotic heart disease of native coronary artery without angina pectoris; I10 Essential (primary) hypertension; E11.9 Type 2 diabetes mellitus without complications | CPT/HCPCS: 80053; 83036; 85025 ==

== ENCOUNTER → 2020-03-12 11:32 | Outpatient (BNVA) | payer MEDICARE, SELFPAY | PROVIDERS: PCP Internal Medicine; Visit Provider Specialist | DX: S43.004A Unspecified dislocation of right shoulder joint, initial encounter (principal); X58.XXXA Exposure to other specified factors, initial encounter | CPT/HCPCS: 73030 ==

== ENCOUNTER → 2020-04-16 11:55 | Outpatient (BNVA) | payer MEDICARE, SELFPAY | PROVIDERS: PCP Internal Medicine; Visit Provider Nurse Practitioner Family | DX: I50.23 Acute on chronic systolic (congestive) heart failure (principal); R60.9 Edema, unspecified | CPT/HCPCS: 80048; 83880 ==

== ENCOUNTER → 2020-05-19 11:20 | Outpatient (BNVA) | payer MEDICARE, SELFPAY | PROVIDERS: PCP Internal Medicine; Visit Provider Nurse Practitioner Family | DX: I50.23 Acute on chronic systolic (congestive) heart failure (principal); R60.9 Edema, unspecified; N17.9 Acute kidney failure, unspecified; N18.9 Chronic kidney disease, unspecified | CPT/HCPCS: 80048 ==

== ENCOUNTER → 2020-06-29 09:46 | Outpatient (BNVA) | payer MEDICARE, SELFPAY | PROVIDERS: PCP Internal Medicine; Visit Provider Internal Medicine | DX: M35.3 Polymyalgia rheumatica (principal); Z79.899 Other long term (current) drug therapy; Z11.59 Encounter for screening for other viral diseases; Z11.1 Encounter for screening for respiratory tuberculosis; Z79.52 Long term (current) use of systemic steroids; M54.5 Low back pain; G89.29 Other chronic pain; M79.641 Pain in right hand; M79.642 Pain in left hand | CPT/HCPCS: 36415; 73120; 80053; 82728; 83540; 85025; 85651; 86140; 86431; 86480; 86704; 86803; 86812; 87340; 99203 ==

== ENCOUNTER 2020-06-29 11:32 | Outpatient (CLI) | payer MEDICARE, SELFPAY ==
--- NOTE | 2020-06-29 11:38 | XRR_ITS ---
PROCEDURE INFORMATION: Exam: XR Left Hand Exam date and time: 06/29/2020 11:54 AM Age: 84 years old Clinical indication: Pain; Hand; Bilateral; Additional info: Hand pain TECHNIQUE: Imaging protocol: XR Left hand. Views: 3 or more views. COMPARISON: No relevant prior studies available. FINDINGS: Bones/joints: Severe degenerative changes within the hand and wrist. . Severe degenerative changes first carpometacarpal joint. Degenerative changes distal radioulnar joint as well as the radiocarpal joint. degenerative changes scaphoid trapezium and trapezoid articulations. Scapholunate dissociation Severe degenerative changes at the base of the 2nd metacarpal Degenerative changes are present in the distal interphalangeal joints and to a lesser degree the more proximal interphalangeal articulations. XR/XR hand LT 2V [id number] IMPRESSION: Severe degenerative changes.
--- NOTE | 2020-06-29 11:38 | XRR_ITS ---
PROCEDURE INFORMATION: Exam: XR Right Hand Exam date and time: 06/29/2020 11:56 AM Age: 84 years old Clinical indication: Pain; Hand; Bilateral; Additional info: Hand pain TECHNIQUE: Imaging protocol: XR Right hand. Views: 1 or 2 views. COMPARISON: No relevant prior studies available. FINDINGS: Bones/joints: Severe degenerative changes within the wrist and hand.. Severe degenerative changes first carpometacarpal joint. Degenerative changes radial carpal joint degenerative changes scaphoid trapezium and trapezoid articulations. Severe changes are present in the distal interphalangeal joints and to a lesser degree the more proximal interphalangeal articulations. XR/XR hand RT 2V [id number] IMPRESSION: Severe degenerative changes throughout the hand.
[2020-06-29 12:33] LABS: Basophils % 0.1 %; Eosinophils % 0.1 %; Hemoglobin 12.2 g/dL (11.5-15.3); Lymphocytes # 1.1 10^3/uL (0.8-4.8); Lymphocytes % 9.7 %; Mean Corpuscular HGB Conc 29.8 g/dL (30.0-36.0); Mean Corpuscular Hemoglobin 29.2 pg (28.0-34.0); Mean Corpuscular Volume 98.1 fL (81-99); Mean Platelet Volume 10.7 fL (7.4-10.4); Monocytes # 0.7 10^3/uL (0.2-0.9); Neutrophils # 9.24 10^3/uL (1.8-7.7); Neutrophils % 82.5 %; Nucleated Red Blood Cells % 0 %; Platelet Count 166 10^3/cmm (130-400); Red Blood Count 4.18 10^6/uL (4.1-5.3); Red Cell Distribution Width 14.5 % (12.1-15.1); White Blood Count 11.2 10^3/uL (4.0-10.0)
[2020-06-29 13:01] LABS: Alanine Aminotransferase 32 U/L (0-33); Alkaline Phosphatase 36 IU/L (35-105); Anion Gap 16.6 (5-19); Aspartate Amino Transferase 24 U/L (0-32); Blood Urea Nitrogen 46 mg/dL (8-23); C Reactive Protein 0.7 mg/L (0.0-4.9); Calcium 9.3 mg/dL (8.5-10.5); Carbon Dioxide 27 mmol/L (22-29); Chloride 103 mmol/L (98-107); Ferritin 83 ng/mL (15-150); Globulin 2.9 g/dL (1.3-4.6); Glucose 110 mg/dL (65-115); Iron 86 ug/dL (37-145); Osmolality Calculated 307 mOsm/kg (285-295); Potassium 4.6 mmol/L (3.5-5.1); Sodium 142 mmol/L (136-145); Total Bilirubin 0.4 mg/dL (0.15-1.2); Total Protein 6.9 g/dL (6.6-8.7)
[2020-06-29 13:03] LABS: Rheumatoid Factor < 10.0 IU/mL (0-14)
[2020-06-29 13:24] LABS: Erythrocyte Sedimentation Rate 12 mm/hr (0-15)
[2020-06-29 13:29] LABS: Hepatitis B Core AB, Total Non-Reactive (Nonreactive); Hepatitis B Surface Antigen Non-Reactive (Nonreactive); Hepatitis C Virus Antibody Non-Reactive (Nonreactive)
[2020-06-30 17:08] LABS: Cyclic Citrullinated Peptide <16 UNITS
[2020-07-01 14:23] LABS: Quantiferon Mitogen 8.21 IU/mL; Quantiferon Nil 0.01 IU/mL; Quantiferon TB Gold NEGATIVE (NEGATIVE)
[2020-07-01 18:43] LABS: HLA-B27 NEGATIVE (NEGATIVE)
== END 2020-06-29 11:33 | disposition home or self-care (01) ==
LOC: RAD 11:36
PROVIDERS: PCP Internal Medicine; Visit Provider Internal Medicine
DX: M79.641 Pain in right hand (principal); M79.642 Pain in left hand; M35.3 Polymyalgia rheumatica
CPT/HCPCS: 73120; 80053; 82728; 83540; 85025; 85651; 86140; 86431; 86480; 86704; 86803; 86812; 87340

== ENCOUNTER 2020-09-09 14:19 | Outpatient (CLI) | payer MEDICARE, SELFPAY ==
--- NOTE | 2020-09-09 14:15 | USCV_ITS ---
Shazia Waters Age: 84 Gender: F : 1935 Exam Date: 09/09/2020 14:48 Ordering Phys: Rubi Mondragon Technologist: Rola Evans Exam Location: [facility] [place] Indication: SWOLLEN LEGS HISTORY: Swollen Legs PROCEDURES: Venous duplex imaging was performed in bilateral lower extremities. The following venous structures were evaluated: common femoral vein, profunda vein, proximal portion of the greater saphenous vein, superficial femoral vein, and the popliteal vein. In addition, the posterior tibial and peroneal trunk were evaluated. Serial compression, augmentation maneuvers, and spectral Doppler flow evaluation were performed. FINDINGS: No DVT seen in any vessel examined. Edema noted CONCLUSIONS No evidence of right lower extremity DVT. No evidence of left lower extremity DVT. Man Correia MD (Electronically Signed) Final Date: 10 September 2020 12:35 S
== END 2020-09-09 14:20 | disposition home or self-care (01) ==
LOC: RAD 14:30
PROVIDERS: PCP Internal Medicine; Visit Provider Nurse Practitioner Family
DX: R60.9 Edema, unspecified (principal); M79.89 Other specified soft tissue disorders
CPT/HCPCS: 80048; 83880; 93970

== ENCOUNTER → 2020-10-20 10:05 | Outpatient (BNVA) | payer MEDICARE, SELFPAY | PROVIDERS: PCP Internal Medicine; Visit Provider Internal Medicine | DX: R60.9 Edema, unspecified (principal); I11.0 Hypertensive heart disease with heart failure; I50.23 Acute on chronic systolic (congestive) heart failure; I10 Essential (primary) hypertension | CPT/HCPCS: 80048; 83880 ==

== ENCOUNTER 2021-01-19 12:06 | Outpatient (CLI) | payer MEDICARE, SELFPAY ==
--- NOTE | 2021-01-19 14:15 | USCV_ITS ---
Hermanpraveen Shazia Age: 85 Gender: F : 1935 Exam Date: 01/19/2021 12:36 Ordering Phys: Anika Eduardo MD ([email or web address]) Technologist: Crorina Zepeda Exam Location[place] [facility] [place] Indication: OTHER CHEST PAIN BP: 164 / 72 HR: 61 Rhythm: Sinus Technical Quality: Technically difficult study MEASUREMENTS (Male / Female) Normal Values 2D ECHO LV Diastolic Diameter PLAX 2.9 cm 4.2 - 5.9 / 3.9 - 5.3 cm LV Systolic Diameter PLAX 2.4 cm IVS Diastolic Thickness 1.9 cm 0.6 - 1.0 / 0.6 - 0.9 cm IVS Systolic Thickness 1.9 cm LVPW Diastolic Thickness 2.0 cm 0.6 - 1.0 / 0.6 - 0.9 cm LVPW Systolic Thickness 1.4 cm LVOT Diameter 2.1 cm LV Ejection Fraction 2D Teich 36.3 % LV Ejection Fraction MOD 2C 26.8 % LV Ejection Fraction 2C AL 28.6 % LA Diameter 3.8 cm LA Width 3.4 cm LA Height 4.2 cm RA Width 2.8 cm RA Height 4.3 cm Aorta at Sinotubular Diameter 2.6 cm M-MODE LV Diastolic Diameter MM 3.9 cm 4.2 - 5.9 / 3.9 - 5.3 cm LV Systolic Diameter MM 3.3 cm LV Ejection Fraction MM Teich 35.2 % IVS Diastolic Thickness MM 1.8 cm 0.6 - 1.0 / 0.6 - 0.9 cm IVS Systolic Thickness MM 1.8 cm LVPW Diastolic Thickness MM 1.9 cm 0.6 - 1.0 / 0.6 - 0.9 cm LVPW Systolic Thickness MM 1.8 cm Aortic Annulus Diameter 3.8 cm LA Ao Ratio MM 1.1 MV E Point Septal Separation 1.3 cm DOPPLER AV Peak Velocity 138.0 cm/s LVOT Peak Velocity 75.0 cm/s AV Area Cont Eq vti 1.7 cm squared AV Area Cont Eq pk 1.8 cm squared MV Area PHT 3.1 cm squared Mitral E to A Ratio 0.6 MV E' Velocity 47.5 cm/s Mitral E to MV E' Ratio 15.5 Mitral E to LV E' Lateral Ratio 17.3 Mitral E to LV E' Septal Ratio 14.3 TR Peak Velocity 329.3 cm/s TR Peak Gradient 43.4 mmHg Right Atrial Pressure 3.0 mmHg Pulmonary Artery Systolic Pressu 46.4 mmHg PV Peak Velocity 88.0 cm/s RV Acceleration Time 0.1 s RV Ejection Time 0.3 s RV AcT/ET 0.5 FINDINGS Left Ventricle Normal LV size with diminished ejection fraction of around 30%. Diffuse hypokinesia of the left ventricle mild concentric left ventricular hypertrophy.Grade I/IV diastolic dysfunction (abnormal relaxation filling pattern), normal to mildly elevated filling pressures. Right Ventricle The right ventricle is normal in size and function. Right Atrium The right atrium is normal in size. Left Atrium Mildly increased left atrial size. Mitral Valve Thickened mitral valve. Moderate mitral annular calcification. Moderate mitral valve regurgitation. Aortic Valve Thickened aortic valve. Trace aortic valve regurgitation. Tricuspid Valve Trace tricuspid valve regurgitation. Pulmonic Valve No gross abnormalities noted Pericardium Normal pericardium without effusion. Aorta Normal ascending aorta dimension. CONCLUSIONS Normal LV size with diminished ejection fraction of around 30%. Diffuse hypokinesia of the left ventricle. Mild concentric left ventricular hypertrophy. Grade I/IV diastolic dysfunction (abnormal relaxation filling pattern), normal to mildly elevated filling pressures. Thickened mitral valve. Moderate mitral annular calcification. Moderate mitral valve regurgitation. Mildly increased left atrial size. Thickened aortic valve. Trace aortic valve regurgitation. Trace tricuspid valve regurgitation. There is no pericardial effusion. There are no intracardiac masses. Compared to the study from 10/18/2017, there is worsening of the LV systolic function Dr Anika Eduardo MD FACC (Electronically Signed) Final Date: 19 January 2021 18:52 S
== END 2021-01-19 12:07 | disposition home or self-care (01) ==
LOC: US 12:08
PROVIDERS: PCP Internal Medicine; Visit Provider Internal Medicine Cardiovascular Disease
DX: R07.89 Other chest pain (principal); R06.02 Shortness of breath; I08.3 Combined rheumatic disorders of mitral, aortic and tricuspid valves; I50.33 Acute on chronic diastolic (congestive) heart failure
CPT/HCPCS: 80048; 83880; 84443; 93306

== ENCOUNTER → 2021-01-20 12:05 | Outpatient (BNVA) | payer MEDICARE, SELFPAY | PROVIDERS: PCP Internal Medicine; Visit Provider Internal Medicine Cardiovascular Disease | DX: I50.33 Acute on chronic diastolic (congestive) heart failure (principal); R06.02 Shortness of breath; R07.9 Chest pain, unspecified | CPT/HCPCS: 80048; 83880 ==

== ENCOUNTER → 2021-02-01 11:04 | Outpatient (BNVA) | payer MEDICARE, SELFPAY | PROVIDERS: PCP Internal Medicine; Visit Provider Internal Medicine | DX: R79.89 Other specified abnormal findings of blood chemistry (principal); I10 Essential (primary) hypertension | CPT/HCPCS: 84443 ==

== ENCOUNTER → 2021-02-17 10:59 | Outpatient (BNVA) | payer MEDICARE, SELFPAY | PROVIDERS: PCP Internal Medicine; Visit Provider Internal Medicine Cardiovascular Disease | DX: I50.23 Acute on chronic systolic (congestive) heart failure (principal); I50.33 Acute on chronic diastolic (congestive) heart failure; R06.02 Shortness of breath; I10 Essential (primary) hypertension; I48.91 Unspecified atrial fibrillation | CPT/HCPCS: 80048; 83880 ==

== ENCOUNTER → 2021-05-13 13:33 | Outpatient (BNVA) | payer MEDICARE, SELFPAY | PROVIDERS: PCP Internal Medicine; Visit Provider Nurse Practitioner Family | DX: I50.23 Acute on chronic systolic (congestive) heart failure (principal) | CPT/HCPCS: 80048; 83880 ==